=== PATIENT | female | born 1990 | race Caucasian/White ===

== ENCOUNTER 2018-04-01 08:53 | Emergency (ER) | payer OTHER, BC ==
[2018-04-01 09:32] VITALS: BP 125/81
--- NOTE | 2018-04-01 11:03 | UC ---
Complaint Female HPI - HPI Summary HPI Summary: Pt c/o sudden onset of "bladder pain" and urinary symptoms of frequency, urgency and dysuria. Pt reprots that she finished taking macrobid 3 days ago after being diagnosed with uti at in [facility]. Pt is sexually active and denies risk for STD - History Of Current Complaint Chief Complaint: UCGU Stated Complaint: URINARY Time Seen by Provider: 04/01/18 10:55 Hx Obtained From: Patient Hx Last Menstrual Period: "about two weeks ago" ?: No Onset/Duration: Sudden Onset, Lasting Hours Timing: Constant Severity Initially: Mild Severity Currently: Mild Pain Intensity: 0 Character: Dull, Burning Aggravating Factor(s): Urination Associated Signs And Symptoms: Positive: Negative - Risk Factors Ectopic Risk Factor: Negative Ovarian Torsion Risk Factor: Reproductive Age - Allergies/Home Medications Allergies/Adverse Reactions: Allergies Allergy/AdvReac Type Severity Reaction Status Date / Time No Known Allergies Allergy Verified 04/01/18 09:25 Home Medications: Home Medications Control Pill 1 tab PO DAILY 04/01/18 [History Confirmed 04/01/18] Escitalopram (NF) [Lexapro 5 mg (NF)] 5 mg PO DAILY 04/01/18 [History Confirmed 04/01/18] PMH/Surg Hx/FS Hx/Imm Hx Previously Healthy: Yes - Surgical History Surgical History: None - Family History Known Family History: Positive: Cardiac Disease - Social History Occupation: Employed Full-time Lives: With Family Alcohol Use: Weekly Substance Use Type: None Smoking Status (MU): Never Smoked Tobacco Have You Smoked in the Last Year: No Review of Systems All Other Systems Reviewed And Are Negative: Yes Constitutional: Positive: Negative Skin: Positive: Negative Eyes: Positive: Negative ENT: Positive: Negative Respiratory: Positive: Negative Cardiovascular: Positive: Negative Gastrointestinal: Positive: Negative Genitourinary: Positive: Dysuria, Hematuria, Frequency, Urgency Motor: Positive: Negative Neurovascular: Positive: Negative Musculoskeletal: Positive: Negative Neurological: Positive: Negative Psychological: Positive: Negative Is Patient Immunocompromised?: No Physical Exam Triage Information Reviewed: Yes Appearance: Well-Appearing Vital Signs: Initial Vital Signs Temp 98.2 F 04/01/18 09:23 Pulse 86 04/01/18 09:23 Resp 16 04/01/18 09:23 BP 125/81 04/01/18 09:23 Pulse Ox 100 04/01/18 09:23 Vital Signs Reviewed: Yes Eye Exam: Normal ENT Exam: Normal Dental Exam: Normal Neck exam: Normal Respiratory Exam: Normal Cardiovascular Exam: Normal Abdominal Exam: Normal Abdomen Description: Positive: Nontender Musculoskeletal Exam: Normal Neurological Exam: Normal Psychological Exam: Normal Skin Exam: Normal Complaint Female Dx - Differential Dx/Diagnosis Differential Diagnosis/HQI/PQRI: Sexually Transmitted Disease, Urinary Tract Infection Provider Diagnosis: UTI (urinary tract infection) Discharge - Sign-Out/Discharge Documenting (check all that apply): Patient Departure All imaging exams completed and their final reports reviewed: No Studies - Discharge Plan Condition: Stable Disposition: HOME Prescriptions: Cephalexin CAP* [Keflex 500 CAP*] 500 mg PO Q8H #21 cap Phenazopyridine 200 mg (NF) [Pyridium 200 MG tab *] 200 mg PO Q8H PRN #6 tab PRN Reason: Pain Patient Education Materials: Urinary Tract Infection in Women (ED) Referrals: Khanh Rizvi MD [Primary Care Provider] - If Needed - Billing Disposition and Condition Condition: STABLE Disposition: Home - Attestation Statements Provider Attestation: Per institutional requirements, I have reviewed the chart, however, I was not consulted specifically or made aware of this patient by the midlevel provider. I did not personally evaluate, interact with , or disposition this patient.
== END 2018-04-01 11:11 | disposition home or self-care (01) ==
LOC: UCCORT 08:53
DX: N39.0 Urinary tract infection, site not specified (principal); B96.20 Unspecified Escherichia coli [E. coli] as the cause of diseases classified elsewhere
CPT/HCPCS: 81003; 84702; 87077; 87086; 87186; 99212; G0463